=== PATIENT | female | born 1980 | race Caucasian/White ===

== ENCOUNTER → 2020-11-28 15:20 | Outpatient (CLI) | payer OTHER, SELFPAY ==
--- NOTE | 2020-11-28 15:23 | DI.MRI.S_ITS ---
PROCEDURE: MR KNEE LT WO CON INDICATIONS: Pain in left knee TECHNIQUE: Noncontrast sagittal PD fast spin echo and T2 fast spin echo with fat saturation, sagittal 3-D FLASH with fat saturation; coronal T1 spin echo and PD fast spin echo with fat saturation, and axial PD fast spin echo with fat saturation through the knee. COMPARISON: None. FINDINGS: Menisci: Medial meniscus: Intact. Lateral meniscus: Truncated appearance of the free margin of the lateral meniscal body suggesting tear with radial component. Cruciate ligaments: Anterior cruciate ligament: Intact. Posterior cruciate ligament: Intact. Medial structures: The medial collateral ligament: Mild thickened appearance with low-grade adjacent soft tissue edema suggestive of low-grade sprain. Semimembranosus tendon: Intact. Visualized pes anserinus tendons: Intact. Bursal fluid: none. Lateral structures: The lateral collateral ligament intact. Biceps femoris tendon appears intact. Popliteus tendon grossly unremarkable. Iliotibial band appears intact. Anterior structures: Quadriceps tendon: Intact. Medial patellofemoral ligament: Intact. Lateral patellofemoral ligament: Intact. Patellar tendon: Mild tendinopathy. Anterior soft tissues: Prepatellar and superficial infrapatellar subcutaneous edema/fluid. Deep infrapatellar region: Normal. Bones and cartilage: Marrow: No focal marrow contusion or discrete low signal fracture line. Medial compartment: No focal chondral defect. Lateral compartment: No focal chondral defect. Patellofemoral compartment: Surface fraying and fissuring of the cartilage overlying the medial patellar facet. Femoral trochlear cartilage appears grossly intact. Joint space: Effusion: Small joint effusion. Popliteal fossa: Partially ruptured Templeton's cyst measuring approximately 4 cm in the cephalocaudal dimension. Loose bodies: None. IMPRESSION: Lateral meniscal tear involving the free margin of the body. Low-grade sprain of the medial collateral ligament, technically age indeterminate. Mild patellar tendinopathy Mild patellofemoral chondromalacia Small joint effusion Partially ruptured Templeton's cyst. Dictated by: Paresh Kang M.D. on 11/28/2020 at 16:56 Approved by: Paresh Kang M.D. on 11/28/2020 at 17:13
== END ==
PROVIDERS: Family Provider Physician Assistant; PCP Physician Assistant; Referring Provider Physician Assistant; Visit Provider Physician Assistant
DX: M25.562 Pain in left knee (principal); S83.282A Other tear of lateral meniscus, current injury, left knee, initial encounter; M22.42 Chondromalacia patellae, left knee; M25.462 Effusion, left knee; M71.22 Synovial cyst of popliteal space [Baker], left knee
CPT/HCPCS: 73721